=== PATIENT | male | born 1960 | race Caucasian/White ===

== ENCOUNTER 2022-10-22 18:48 | Emergency (ER) | payer OTHER ==
[2022-10-22] MEDS ORDERED: AMOX TR/POT CLAV 875MG/125MG TABLETS (FP) PO ONE (19:00)
[2022-10-22 19:01] VITALS: BP 114/75; PULSE 65; RESP 18; TEMP 98.8; BMI 25.0
[2022-10-22] MEDS ORDERED: DIPHTH,PERTUSS(ACELL),TET 0.5 ML DISP.SYRIN IM ONE ×2 (19:01→19:28)
[2022-10-22] MEDS ORDERED: AMOX TR/POT CLAV 875MG/125MG TABLETS (FP) ONE (19:28)
[2022-10-22] MEDS ORDERED: LIDOCAINE 2%/EPINEPHRINE 1:200,000/PF 20 ML VIAL INF ONE (19:37)
[2022-10-22] MEDS ORDERED: LIDO 2%/EPI 1:200000 PRESRVFRE (20 ML SDVIAL) ONE (19:43)
== END 2022-10-22 20:40 | disposition home or self-care (01) ==
LOC: FER 18:48
PROC: 0HQLXZZ Repair Left Lower Leg Skin, External Approach (ICD-10-PCS; principal; 2022-10-22)
PROC: 3E0234Z Introduction of Serum, Toxoid and Vaccine into Muscle, Percutaneous Approach (ICD-10-PCS; 2022-10-22)
DX: S81.812A Laceration without foreign body, left lower leg, initial encounter (principal); S86.222A Laceration of muscle(s) and tendon(s) of anterior muscle group at lower leg level, left leg, initial encounter; W31.2XXA Contact with powered woodworking and forming machines, initial encounter; Y92.9 Unspecified place or not applicable
CPT/HCPCS: 73590-TC-LT-FY; 73610-TC-LT-FY; 90715; 99283-25